=== PATIENT | male | born 1975 | race Caucasian/White ===

== ENCOUNTER 2018-02-16 14:48 | Emergency (ER) | payer SELFPAY ==
[2018-02-16 15:17] VITALS: BP 157/89
[2018-02-16] MEDS ORDERED: NORCO 7.5/325 PO ONE (15:27)
[2018-02-16] MEDS ORDERED: MOTRIN PO ONE (15:27)
[2018-02-16] MEDS ORDERED: MARCAINE 0.25% INFILTRATI ONE (16:03)
--- NOTE | 2018-02-16 17:16 | Emergency Department Report ---
ED Extremity Problem HPI - General Chief complaint: Multiple Trauma Stated complaint: FRACTURE ARM Time Seen by Provider: 02/16/18 15:24 Source: patient, [facility] Mode of arrival: Wheelchair Limitations: Language Barrier - History of Present Illness Initial comments: Patient is a 42-year-old male who is presenting with left wrist pain. Patient was on a a letter that was 12 feet up near the roof the ladder felland was coming down he jumped and the ladder fell on him. Patient has no other injury except for the left wrist. There is obvious deformity present. Patient states he did not hit his head is no loss of consciousness. Patient says aching throbbing pain is 8 out of 10 in severity. Severity scale (0 -10): 10 - Related Data Previous Rx's Medication Instructions Recorded Last Taken Type HYDROcodone/APAP 5-325 [[place] 1 each PO Q6HR PRN #15 tablet 02/16/18 Unknown Rx 5/325] Ibuprofen [Motrin] 800 mg PO Q8HR PRN #20 tablet 02/16/18 Unknown Rx Allergies Allergy/AdvReac Type Severity Reaction Status Date / Time No Known Allergies Allergy Unverified 02/16/18 15:16 ED Review of Systems ROS: Stated complaint: FRACTURE ARM Other details as noted in HPI Comment: All other systems reviewed and negative ED Past Medical Hx - Past Medical History Previous Medical History?: No - Surgical History Hx Appendectomy: Yes - Social History Smoking Status: Never Smoker Substance Use Type: None - Medications Home Medications: Home Medications Medication Instructions Recorded Confirmed Last Taken Type HYDROcodone/APAP 5-325 [[place] 1 each PO Q6HR PRN #15 tablet 02/16/18 Unknown Rx 5/325] Ibuprofen [Motrin] 800 mg PO Q8HR PRN #20 tablet 02/16/18 Unknown Rx ED Physical Exam - General Limitations: Language Barrier General appearance: alert, in no apparent distress - Head Head exam: Present: atraumatic, normocephalic - Eye Eye exam: Present: normal appearance - ENT ENT exam: Present: mucous membranes moist - Neck Neck exam: Present: normal inspection - Respiratory Respiratory exam: Present: normal lung sounds bilaterally. Absent: respiratory distress - Cardiovascular Cardiovascular Exam: Present: regular rate, normal rhythm. Absent: systolic murmur, diastolic murmur, rubs, gallop - GI/Abdominal GI/Abdominal exam: Present: soft, normal bowel sounds - Rectal Rectal exam: Present: deferred - Extremities Exam Extremities exam: Present: normal inspection, tenderness, joint swelling ( patient's left wrist shows swelling with obvious deformity. Patient does have a good radial pulse and normal capillary refills. Patient is able to move his fingers) - Back Exam Back exam: Present: normal inspection - Neurological Exam Neurological exam: Present: alert, oriented X3 - Psychiatric Psychiatric exam: Present: normal affect, normal mood - Skin Skin exam: Present: warm, dry, intact, normal color. Absent: rash ED Course Vital Signs 02/16/18 15:11 Temperature 98.2 F Pulse Rate 91 H Respiratory 18 Rate Blood Pressure 157/89 O2 Sat by Pulse 93 Oximetry - Orthopedic Fracture Reduction Fracture #1 Consent Obtained: verbal consent Time Out Performed: Yes Side: left Fracture Reduction Location: radius Analgesia: hematoma block Technique: direct manipulation Post Reduction X-rays Demonstrate: anatomical reduction Post-Reduction Neuro Exam: intact Post-Reduction Vascular Exam: intact Splint Applied: Yes (sugartong splint applied by me with nurse assistance) Patient Tolerated Procedure: well ED Medical Decision Making - Medical Decision Making To be discharged home with Kamla with follow-up with orthopedics. Fracture care has been given. Critical care attestation.: If time is entered above; I have spent that time in minutes in the direct care of this critically ill patient, excluding procedure time. ED Disposition Clinical Impression: Distal radial fracture Qualifiers: Encounter type: initial encounter Fracture type: closed Fracture morphology: Colles' Laterality: left Qualified Code(s): S52.532A - Colles' fracture of left radius, initial encounter for closed fracture Disposition: TO HOME OR SELFCARE Is pt being admited?: No Does the pt Need Aspirin: No Condition: Stable Instructions: Wrist Fracture in Adults (ED) Referrals: CATALINO BEE MD [Staff Physician] - 3-5 Days Time of Disposition: 17:16
--- NOTE | 2018-02-16 17:18 | XRay Report ---
FINAL REPORT EXAM: XR WRIST 3+V LT HISTORY: injury TECHNIQUE: Three views left wrist Comparison: None FINDINGS: Normal bony mineralization. Comminuted impacted distal left radial metaphyseal fracture extending into the radiocarpal space and distal radial ulnar joint. Ulnar styloid avulsion. Carpal rows appear to be preserved. Subtle capitate fracture could be missed. Marked soft tissue swelling. IMPRESSION: Distal radial metaphyseal impacted comminuted fracture with involvement of the distal radial ulnar joint and radiocarpal space. Moderate dorsal angulation.
== END 2018-02-16 18:06 | disposition home or self-care (01) ==
LOC: ED 14:48
DX: S52.532A Colles' fracture of left radius, initial encounter for closed fracture (principal); W11.XXXA Fall on and from ladder, initial encounter; Y93.89 Activity, other specified; Y99.8 Other external cause status; Y92.89 Other specified places as the place of occurrence of the external cause